=== PATIENT | female | born 1950 | race African-American/Black ===

== ENCOUNTER 2018-03-14 16:59 | Inpatient (IN) ==
[2018-03-14] MEDS ORDERED: ONDANSETRON 4 MG/2 ML VIAL IV STA (17:14)
[2018-03-14] MEDS ORDERED: NITROGLYCERIN 2% OINT 1 INCH/GM PACK TOP STA (17:14)
[2018-03-14] MEDS ORDERED: METOPROLOL TARTRATE 5 MG/5 ML VIAL IV STA (17:14)
[2018-03-14] MEDS ORDERED: MORPHINE 4 MG/1 ML VIAL IV STA (17:14)
[2018-03-14] MEDS ORDERED: ENOXAPARIN 60 MG/0.6 ML SYRINGE SUBCUT STA (17:21)
[2018-03-14 17:26] LABS: Basophils # 0.1 10*3/uL (0.0-0.2); Basophils % 0.4 % (0.0-0.8); Eosinophils % 0.1 % (0.00-10.9); Hematocrit 42.8 VOL% (35.7-47.0); Hemoglobin 13.8 GM/DL (12.0-16.0); Immature Granulocytes % 0.4 %; Immature Granulocytes Absolute 0.06 #; Lymphocytes # 3.1 10*3/uL (1.4-4.0); Lymphocytes % 20.3 % (21.3-54.2); Mean Corpuscular HGB Conc 32.2 GM/DL (32-36); Mean Corpuscular Hemoglobin 29 PG (27-34); Mean Corpuscular Volume 89.7 FL (87-102); Mean Platelet Volume 10.6 FL (9.6-12.0); Monocytes # 1.1 10*3/uL (0.11-0.8); Monocytes % 7.1 % (1.7-12.7); Neutrophils % 71.7 % (38.7-73.9); Platelet Count 323 T/CUMM (130-400); Red Blood Count 4.77 MC/CUMM (3.8-5.5); Red Cell Distribution Width 13.2 % (9.3-17.3); White Blood Count 15.4 T/CUMM (4-12)
[2018-03-14] MEDS ORDERED: NITROGLYCERIN DRIP 50 MG/250 ML BOTTLE IV ONE (17:33)
[2018-03-14] MEDS: NITROGLYCERIN DRIP 50 MG/250 ML BOTTLE IV PRN (17:40)
[2018-03-14 17:43] LABS: PT Patient Result 10.6 SECS; Partial Thromboplastin Time 25.9 SECS (0-40)
[2018-03-14] MEDS ORDERED: ACETAMINOPHEN 325 MG TABLET PO PRN (17:44)
[2018-03-14] MEDS ORDERED: MAGNESIUM SULF RIDER 2 GM in PREMIX 1 EACH IV PRN (17:44)
[2018-03-14] MEDS ORDERED: BISACODYL 5 MG TABLET PO PRN (17:44)
[2018-03-14] MEDS ORDERED: diphenhydrAMINE CAP 25 MG CAPSULE PO PRN (17:44)
[2018-03-14] MEDS ORDERED: ONDANSETRON 4 MG/2 ML VIAL IV PRN (17:44)
[2018-03-14] MEDS ORDERED: guaiFENesin/DM ER 600-30 MG TABLET PO PRN (17:44)
[2018-03-14] MEDS ORDERED: MAGNESIUM SULF RIDER 4 GM in PREMIX 1 EACH IV PRN (17:44)
[2018-03-14 17:48] LABS: Albumin 3.3 G/DL (3.4-5.0); Bilirubin,Total 0.6 MG/DL (0.2-1.0); CKMB % 11.6 %; Calcium 8.9 MG/DL (8.5-10.1); Osmolality,Calculated 274.8 MOS/KG (273-304); Potassium 3.5 MMOL/L (3.5-5.1); Total Protein 8.6 G/DL (6.4-8.3)
[2018-03-14 18:01] LABS: Troponin I Only 21.7 NG/ML (0.00-0.045)
[2018-03-14] MEDS ORDERED: DEXTROSE 50% 25 GM/50 ML VIAL IV PRN (18:01)
[2018-03-14] MEDS ORDERED: GLUCAGON 1 MG VIAL IM PRN (18:01)
[2018-03-14] MEDS ORDERED: ALBUTEROL 1.25 MG/3 ML NEB RESP TX PRN (18:05)
[2018-03-14] MEDS ORDERED: TICAGRELOR 90 MG TABLET PO ONE (18:10)
[2018-03-14] MEDS ORDERED: FUROSEMIDE 20 MG/2 ML VIAL IV STA (18:12)
[2018-03-14 18:16] LABS: Apearance,Urine CLEAR (Clear); Bacteria,Urine Occasional /HPF (Few); Bilirubin,Urine Negative (Negative); Blood, Urine Negative (Negative); Glucose,Urine (UA) Negative (Negative); Ketones,Urine Negative (Negative); Mucus,Urine Occasional /LPF (Occasional); Nitrite,Urine Negative (Negative); Protein,Urine 100 MG/DL; RBC,Urine 1 /HPF (0-4); Squamous Epithelial Cell,Urine Occasional /HPF (0-10); Urine Color Yellow (Yellow); Urine Specific Gravity 1.013 (1.001-1.035); Urine Urobilinogen < 2.0 EU/DL (0.2-1.0); WBC,Urine 2 /HPF (0-6)
[2018-03-14 18:28] LABS: Barbiturates Screen,Urine Negative (Negative); Benzodiazepines Screen,Urine Negative (Negative); Cannabinoid Screen,Urine Negative (Negative); Opiate Screen,Urine Positive (Negative); Phencyclidine Screen,Urine Negative (Negative)
[2018-03-14 20:05] LABS: CKMB % 11.1 %
[2018-03-14] MEDS: LOSARTAN 25 MG TABLET PO SCH (20:27)
[2018-03-14] MEDS: ROSUVASTATIN 20 MG TABLET PO SCH (20:27)
[2018-03-14] MEDS: POTASSIUM CHLORIDE 20 MEQ TABLET PO PRN (20:28)
[2018-03-14] MEDS: METOPROLOL TARTRATE 25 MG TABLET PO SCH (20:28)
[2018-03-14] MEDS: MORPHINE 4 MG/1 ML VIAL IV PRN (20:33)
[2018-03-14 20:38] LABS: Troponin I Only 32.1 NG/ML (0.00-0.045)
[2018-03-14] MEDS: INSULIN LISPRO 100 UNIT/ML SUBCUT SCH (21:14)
[2018-03-15] LABS: Troponin I Only 39.9 NG/ML (0.00-0.045)
[2018-03-15 06:03] LABS: Basophils % 0.3 % (0.0-0.8); Eosinophils % 0.1 % (0.00-10.9); Hematocrit 38.2 VOL% (35.7-47.0); Hemoglobin 12.7 GM/DL (12.0-16.0); Immature Granulocytes % 0.4 %; Immature Granulocytes Absolute 0.05 #; Lymphocytes # 2.4 10*3/uL (1.4-4.0); Lymphocytes % 17.6 % (21.3-54.2); Mean Corpuscular HGB Conc 33.2 GM/DL (32-36); Mean Corpuscular Hemoglobin 29 PG (27-34); Mean Corpuscular Volume 87.2 FL (87-102); Mean Platelet Volume 10.4 FL (9.6-12.0); Monocytes # 1.3 10*3/uL (0.11-0.8); Monocytes % 9.6 % (1.7-12.7); Neutrophils # 9.9 10*3/uL (1.4-7.4); Platelet Count 337 T/CUMM (130-400); Red Blood Count 4.38 MC/CUMM (3.8-5.5); Red Cell Distribution Width 13.2 % (9.3-17.3); White Blood Count 13.7 T/CUMM (4-12)
[2018-03-15] MEDS: ENOXAPARIN 60 MG/0.6 ML SYRINGE SUBCUT SCH ×2 (06:27→17:17)
[2018-03-15] MEDS: MORPHINE 4 MG/1 ML VIAL IV PRN ×3 (06:29→20:05)
[2018-03-15 06:38] LABS: Calcium 8.7 MG/DL (8.5-10.1); Osmolality,Calculated 281.3 MOS/KG (273-304); Potassium 3.5 MMOL/L (3.5-5.1); Risk Ratio 3.54; Thyroid Stimulating Hormone 0.359 uIU/ml (0.358-3.74); VLDL CHOLESTEROL 26.6 MG/DL
[2018-03-15] MEDS: INSULIN LISPRO 100 UNIT/ML SUBCUT SCH ×4 (07:32→20:49)
[2018-03-15] MEDS: FUROSEMIDE 20 MG/2 ML VIAL IV SCH ×2 (08:08→16:50)
[2018-03-15] MEDS: ASPIRIN EC 81 MG TABLET PO SCH (08:09)
[2018-03-15] MEDS: PANTOPRAZOLE 40 MG TABLET PO SCH (08:09)
[2018-03-15] MEDS: LOSARTAN 25 MG TABLET PO SCH ×2 (08:09→20:05)
[2018-03-15] MEDS: METOPROLOL TARTRATE 25 MG TABLET PO SCH ×2 (08:09→20:05)
[2018-03-15] MEDS ORDERED: TICAGRELOR 90 MG TABLET PO SCH (09:00)
[2018-03-15] MEDS ORDERED: ENOXAPARIN 40 MG/0.4 ML SYRINGE SUBCUT SCH (09:00)
[2018-03-15] MEDS ORDERED: ASPIRIN 325 MG TABLET PO ONE (09:15)
[2018-03-15] MEDS ORDERED: DIAZEPAM 5 MG TABLET PO ONE (09:15)
[2018-03-15] MEDS ORDERED: diphenhydrAMINE CAP 25 MG CAPSULE PO ONE (09:15)
[2018-03-15] MEDS ORDERED: POTASSIUM CHLORIDE RIDER 10 MEQ in PREMIX 1 EACH IV PRN (09:15)
[2018-03-15] MEDS ORDERED: MAGNESIUM SULF RIDER 2 GM in PREMIX 1 EACH IV PRN (09:15)
[2018-03-15] MEDS ORDERED: SODIUM CHLORIDE 0.9% 1,000 ML IV SCH (09:30)
[2018-03-15] MEDS ORDERED: MIDAZOLAM 2 MG/2 ML VIAL ONE (09:38)
[2018-03-15] MEDS ORDERED: HEPARIN 5,000 UNIT/1 ML VIAL ONE (09:38)
[2018-03-15] MEDS ORDERED: fentaNYL 100 MCG/2 ML VIAL ONE (09:38)
[2018-03-15] MEDS ORDERED: NITROGLYCERIN DRIP 50 MG/250 ML BOTTLE IV ONE (11:29)
[2018-03-15] MEDS: NITROGLYCERIN DRIP 50 MG/250 ML BOTTLE IV PRN ×2 (12:10→21:45)
[2018-03-15] MEDS: ROSUVASTATIN 20 MG TABLET PO SCH (20:05)
[2018-03-15] MEDS: ZALEPLON 5 MG CAPSULE PO PRN (20:05)
[2018-03-15] MEDS: NICOTINE 7 MG/24 HR PATCH TRANSDERM PRN (20:45)
[2018-03-16] MEDS: MORPHINE 4 MG/1 ML VIAL IV PRN ×4 (04:07→13:53)
[2018-03-16 05:32] LABS: Basophils # 0.1 10*3/uL (0.0-0.2); Basophils % 0.4 % (0.0-0.8); Eosinophils % 0.3 % (0.00-10.9); Hematocrit 33.1 VOL% (35.7-47.0); Immature Granulocytes % 0.4 %; Immature Granulocytes Absolute 0.05 #; Lymphocytes # 3.8 10*3/uL (1.4-4.0); Lymphocytes % 29.9 % (21.3-54.2); Mean Corpuscular HGB Conc 33.2 GM/DL (32-36); Mean Corpuscular Hemoglobin 29 PG (27-34); Mean Corpuscular Volume 88.3 FL (87-102); Mean Platelet Volume 10.4 FL (9.6-12.0); Monocytes # 1.4 10*3/uL (0.11-0.8); Monocytes % 11.4 % (1.7-12.7); Neutrophils # 7.2 10*3/uL (1.4-7.4); Neutrophils % 57.6 % (38.7-73.9); Platelet Count 255 T/CUMM (130-400); Red Blood Count 3.75 MC/CUMM (3.8-5.5); Red Cell Distribution Width 13.3 % (9.3-17.3); White Blood Count 12.6 T/CUMM (4-12)
[2018-03-16 06:02] LABS: Calcium 8.4 MG/DL (8.5-10.1); Osmolality,Calculated 279.4 MOS/KG (273-304); Potassium 3.4 MMOL/L (3.5-5.1)
[2018-03-16] MEDS: ENOXAPARIN 60 MG/0.6 ML SYRINGE SUBCUT SCH ×2 (06:55→18:16)
[2018-03-16] MEDS: POTASSIUM CHLORIDE 20 MEQ TABLET PO PRN ×3 (07:00→13:54)
[2018-03-16] MEDS: INSULIN LISPRO 100 UNIT/ML SUBCUT SCH ×4 (07:30→21:54)
[2018-03-16] MEDS: FUROSEMIDE 20 MG/2 ML VIAL IV SCH ×2 (08:46→17:15)
[2018-03-16] MEDS: ASPIRIN EC 81 MG TABLET PO SCH (08:47)
[2018-03-16] MEDS: METOPROLOL TARTRATE 25 MG TABLET PO SCH ×2 (08:47→20:46)
[2018-03-16] MEDS: LOSARTAN 25 MG TABLET PO SCH (08:47)
[2018-03-16] MEDS: PANTOPRAZOLE 40 MG TABLET PO SCH (08:47)
[2018-03-16] MEDS: NITROGLYCERIN DRIP 50 MG/250 ML BOTTLE IV PRN (10:02)
[2018-03-16] MEDS: LOSARTAN 50 MG TABLET PO SCH ×2 (12:06→20:46)
[2018-03-16] MEDS: CARVEDILOL 25 MG TABLET PO SCH ×5 (15:38→23:58)
[2018-03-16] MEDS: traMADol 50 MG TABLET PO PRN (15:40)
[2018-03-16] MEDS: SPIRONOLACTONE 25 MG TABLET PO SCH ×2 (15:42→20:47)
[2018-03-16] MEDS: GABAPENTIN 100 MG CAPSULE PO SCH ×2 (15:43→20:46)
[2018-03-16] MEDS: ENOXAPARIN 40 MG/0.4 ML SYRINGE SUBCUT SCH (18:13)
[2018-03-16] MEDS: ROSUVASTATIN 20 MG TABLET PO SCH (20:45)
[2018-03-17 05:14] LABS: Basophils # 0.1 10*3/uL (0.0-0.2); Basophils % 0.5 % (0.0-0.8); Eosinophils # 0.1 10*3/uL (0.0-0.87); Eosinophils % 1.2 % (0.00-10.9); Hematocrit 34.1 VOL% (35.7-47.0); Hemoglobin 11.1 GM/DL (12.0-16.0); Immature Granulocytes % 0.4 %; Immature Granulocytes Absolute 0.04 #; Lymphocytes # 3.7 10*3/uL (1.4-4.0); Lymphocytes % 33.6 % (21.3-54.2); Mean Corpuscular HGB Conc 32.6 GM/DL (32-36); Mean Corpuscular Hemoglobin 29 PG (27-34); Mean Platelet Volume 10.6 FL (9.6-12.0); Monocytes # 1.3 10*3/uL (0.11-0.8); Neutrophils # 5.7 10*3/uL (1.4-7.4); Neutrophils % 52.3 % (38.7-73.9); Platelet Count 254 T/CUMM (130-400); Red Blood Count 3.83 MC/CUMM (3.8-5.5); Red Cell Distribution Width 13.4 % (9.3-17.3); White Blood Count 10.9 T/CUMM (4-12)
[2018-03-17] MEDS: ENOXAPARIN 40 MG/0.4 ML SYRINGE SUBCUT SCH ×2 (05:15→17:32)
[2018-03-17] MEDS: MORPHINE 4 MG/1 ML VIAL IV PRN ×2 (05:15→21:01)
[2018-03-17] MEDS: CARVEDILOL 25 MG TABLET PO SCH ×3 (05:15→21:00)
[2018-03-17 05:50] LABS: Calcium 8.7 MG/DL (8.5-10.1); Osmolality,Calculated 280.3 MOS/KG (273-304)
[2018-03-17] MEDS: INSULIN LISPRO 100 UNIT/ML SUBCUT SCH ×2 (08:22→14:58)
[2018-03-17] MEDS: PANTOPRAZOLE 40 MG TABLET PO SCH (08:36)
[2018-03-17] MEDS: LOSARTAN 50 MG TABLET PO SCH ×2 (08:36→21:00)
[2018-03-17] MEDS: SPIRONOLACTONE 25 MG TABLET PO SCH ×2 (08:36→21:00)
[2018-03-17] MEDS: ASPIRIN EC 81 MG TABLET PO SCH (08:37)
[2018-03-17] MEDS: GABAPENTIN 100 MG CAPSULE PO SCH ×3 (08:37→21:01)
[2018-03-17] MEDS: METOPROLOL TARTRATE 25 MG TABLET PO SCH (08:38)
[2018-03-17] MEDS: FUROSEMIDE 20 MG/2 ML VIAL IV SCH (08:39)
[2018-03-17] MEDS: NICOTINE 7 MG/24 HR PATCH TRANSDERM PRN (08:59)
[2018-03-17] MEDS ORDERED: CARVEDILOL 25 MG TABLET PO ONE (12:00)
[2018-03-17] MEDS: traMADol 50 MG TABLET PO PRN (14:52)
[2018-03-17] MEDS: amLODIPine 5 MG TABLET PO SCH ×2 (14:53→21:08)
[2018-03-17] MEDS: ZALEPLON 5 MG CAPSULE PO PRN (21:00)
[2018-03-17] MEDS: ROSUVASTATIN 20 MG TABLET PO SCH (21:00)
[2018-03-18 05:10] LABS: Basophils % 0.4 % (0.0-0.8); Eosinophils # 0.2 10*3/uL (0.0-0.87); Eosinophils % 1.9 % (0.00-10.9); Hematocrit 34.4 VOL% (35.7-47.0); Hemoglobin 11.2 GM/DL (12.0-16.0); Immature Granulocytes % 0.3 %; Immature Granulocytes Absolute 0.03 #; Lymphocytes # 3.4 10*3/uL (1.4-4.0); Lymphocytes % 33.5 % (21.3-54.2); Mean Corpuscular HGB Conc 32.6 GM/DL (32-36); Mean Corpuscular Hemoglobin 29 PG (27-34); Mean Corpuscular Volume 89.8 FL (87-102); Mean Platelet Volume 10.8 FL (9.6-12.0); Monocytes # 0.9 10*3/uL (0.11-0.8); Monocytes % 8.4 % (1.7-12.7); Neutrophils # 5.7 10*3/uL (1.4-7.4); Neutrophils % 55.5 % (38.7-73.9); Platelet Count 267 T/CUMM (130-400); Red Blood Count 3.83 MC/CUMM (3.8-5.5); Red Cell Distribution Width 13.3 % (9.3-17.3); White Blood Count 10.2 T/CUMM (4-12)
[2018-03-18 05:51] LABS: Calcium 8.7 MG/DL (8.5-10.1); Osmolality,Calculated 284.1 MOS/KG (273-304); Potassium 4.5 MMOL/L (3.5-5.1)
[2018-03-18] MEDS: ENOXAPARIN 40 MG/0.4 ML SYRINGE SUBCUT SCH ×2 (06:10→16:40)
[2018-03-18] MEDS: GABAPENTIN 100 MG CAPSULE PO SCH ×3 (08:38→20:52)
[2018-03-18] MEDS: SPIRONOLACTONE 25 MG TABLET PO SCH ×2 (08:38→20:52)
[2018-03-18] MEDS: amLODIPine 5 MG TABLET PO SCH ×2 (08:38→20:52)
[2018-03-18] MEDS: PANTOPRAZOLE 40 MG TABLET PO SCH (08:38)
[2018-03-18] MEDS: FUROSEMIDE 40 MG TABLET PO SCH (08:38)
[2018-03-18] MEDS: ASPIRIN EC 81 MG TABLET PO SCH (08:38)
[2018-03-18] MEDS: LOSARTAN 50 MG TABLET PO SCH ×2 (08:39→20:52)
[2018-03-18] MEDS: CARVEDILOL 25 MG TABLET PO SCH ×2 (08:39→20:52)
[2018-03-18] MEDS: traMADol 50 MG TABLET PO PRN (08:39)
[2018-03-18] MEDS ORDERED: traMADol 50 MG TABLET PO PRN (08:45)
[2018-03-18] MEDS: NICOTINE 7 MG/24 HR PATCH TRANSDERM PRN (17:00)
[2018-03-18] MEDS ORDERED: MAGNESIUM HYDROXIDE SUSP 30 ML UDCUP PO PRN (17:02)
[2018-03-18] MEDS: ROSUVASTATIN 20 MG TABLET PO SCH (20:52)
[2018-03-19] MEDS: GABAPENTIN 100 MG CAPSULE PO SCH (08:16)
[2018-03-19] MEDS: CARVEDILOL 25 MG TABLET PO SCH (08:16)
[2018-03-19] MEDS: PANTOPRAZOLE 40 MG TABLET PO SCH (08:16)
[2018-03-19] MEDS: FUROSEMIDE 40 MG TABLET PO SCH (08:17)
[2018-03-19] MEDS: ASPIRIN EC 81 MG TABLET PO SCH (08:17)
[2018-03-19] MEDS: SPIRONOLACTONE 25 MG TABLET PO SCH (08:17)
[2018-03-19] MEDS: LOSARTAN 50 MG TABLET PO SCH (08:17)
[2018-03-19] MEDS: amLODIPine 5 MG TABLET PO SCH (08:17)
[2018-03-19] MEDS ORDERED: NITROGLYCERIN SL 0.4 MG TABLET SL ONE (10:52)
[2018-03-19] MEDS ORDERED: MORPHINE 4 MG/1 ML VIAL IV ONE (11:01)
[2018-03-19] MEDS ORDERED: MORPHINE 10 MG/1 ML VIAL ONE (11:04)
[2018-03-19] MEDS: CHLORHEXIDINE 4% SOLN 118 ML BOTTLE TOP SCH (11:10)
[2018-03-19] MEDS ORDERED: ceFAZolin 1,000 MG in SYRINGE 1 EACH IV ONE (11:14)
[2018-03-19] MEDS ORDERED: NITROGLYCERIN DRIP 50 MG/250 ML BOTTLE IV PRN (11:18)
[2018-03-19] MEDS ORDERED: MORPHINE 4 MG/1 ML VIAL IV PRN (11:19)
[2018-03-19] MEDS ORDERED: MIDAZOLAM 10 MG/2 ML VIAL ONE ×2 (11:20→21:41)
[2018-03-19] MEDS ORDERED: SUFentanil 250 MCG/5 ML AMP ONE (11:20)
[2018-03-19] MEDS ORDERED: CHLORHEXIDINE 0.12% ORAL RINSE 60 ML BOTTLE SWISH/SPIT SCH (11:30)
[2018-03-19] MEDS ORDERED: SODIUM CHLORIDE 0.9% 1,000 ML IV SCH (11:30)
[2018-03-19] MEDS ORDERED: PAPAVERINE 60 MG/2 ML VIAL ONE (11:36)
[2018-03-19] MEDS ORDERED: VANCOMYCIN 1,000 MG VIAL ONE (11:37)
[2018-03-19] MEDS ORDERED: TISSUE ADHESIVE 1 EACH APPLICATOR TOP ONE (11:37)
[2018-03-19] MEDS ORDERED: HEPARIN/NACL 0.9% 2 UNITS/ML 500 ML IV ONE (11:38)
[2018-03-19 11:46] LABS: Basophils % 0.4 % (0.0-0.8); Eosinophils # 0.2 10*3/uL (0.0-0.87); Eosinophils % 1.4 % (0.00-10.9); Hematocrit 36.9 VOL% (35.7-47.0); Hemoglobin 12.1 GM/DL (12.0-16.0); Immature Granulocytes % 0.3 %; Immature Granulocytes Absolute 0.03 #; Lymphocytes # 3.4 10*3/uL (1.4-4.0); Lymphocytes % 30.4 % (21.3-54.2); Mean Corpuscular HGB Conc 32.8 GM/DL (32-36); Mean Corpuscular Hemoglobin 29 PG (27-34); Mean Corpuscular Volume 89.3 FL (87-102); Mean Platelet Volume 10.5 FL (9.6-12.0); Monocytes # 1.1 10*3/uL (0.11-0.8); Monocytes % 9.5 % (1.7-12.7); Neutrophils # 6.5 10*3/uL (1.4-7.4); Platelet Count 355 T/CUMM (130-400); Red Blood Count 4.13 MC/CUMM (3.8-5.5); Red Cell Distribution Width 13.1 % (9.3-17.3); White Blood Count 11.1 T/CUMM (4-12)
[2018-03-19] MEDS ORDERED: METOCLOPRAMIDE 10 MG/2 ML VIAL ONE (11:47)
[2018-03-19] MEDS ORDERED: MINERAL OIL/PETROLATUM OPH OINT 3.5 GM TUBE ONE ×2 (11:54→15:58)
[2018-03-19] MEDS ORDERED: SUCCINYLCHOLINE 200 MG/10 ML VIAL ONE ×2 (11:54→15:59)
[2018-03-19] MEDS ORDERED: METOCLOPRAMIDE 10 MG/2 ML VIAL IV ONE ×2 (11:59→12:01)
[2018-03-19] MEDS ORDERED: CEFUROXIME 1,500 MG VIAL ONE (12:02)
[2018-03-19 12:28] LABS: Albumin 3.2 G/DL (3.4-5.0); Bilirubin,Total 0.7 MG/DL (0.2-1.0); Calcium 9.6 MG/DL (8.5-10.1); Osmolality,Calculated 276.7 MOS/KG (273-304); Potassium 3.8 MMOL/L (3.5-5.1); Total Protein 8.4 G/DL (6.4-8.3)
[2018-03-19 13:05] LABS: ABG Base Excess 0.3 MMOL/L (-2.5-2.5); ABG HCO3 24.7 MMOL/L (20-26); ABG Oxygen Saturation 99.7 % (95-100); ABG PO2 419.9 MM HG (80-95); ABG TCO2 25.9 MMOL/L (23-27); Glucose Heart Surgery 102 MG/DL (74-106); Hemoglobin Heart Surgery 10.8 G/DL (12.0-16.0); Ionized Calcium Arterial 1.13 MMOL/L (1.21-1.46); PO2 Patient Temp Arterial 419.9 MM HG; Patient Temperature 37 CELCIUS; Potassium Heart/CVR 4.2 MMOL/L (3.5-5.1); Sodium Heart/CVR 137 MMOL/L (135-145)
[2018-03-19 14:29] LABS: Glucose Heart Surgery 343 MG/DL (74-106); PH Patient Temp Venous 7.423; PO2 Patient Temp Venous 39.7 MM HG; Patient Temperature 37 CELCIUS; Potassium Heart/CVR 4.6 MMOL/L (3.5-5.1); Sodium Heart/CVR 125 MMOL/L (135-145); VBG Base Excess -0.2 MEQ/L (0-4); VBG HCO3 24.1 MEQ/L (24-28); VBG Oxygen Saturation 74.9 %; VBG PH 7.423; VBG PO2 39.7 MMHG (17-40)
[2018-03-19 14:31] LABS: Hematocrit Heart Surgery 15.7 PERCENT (37-47); Hemoglobin Heart Surgery < 5.0 G/DL (12.0-16.0)
[2018-03-19 14:57] LABS: Hematocrit Heart Surgery 23.5 PERCENT (37-47); Hemoglobin Heart Surgery 7.5 G/DL (12.0-16.0); PCO2 Patient Temp Venous 37.4 MM HG; PH Patient Temp Venous 7.407; PO2 Patient Temp Venous 33.3 MM HG; VBG Base Excess -0.9 MEQ/L (0-4); VBG HCO3 23.3 MEQ/L (24-28); VBG Oxygen Saturation 68.4 %; VBG PCO2 37.4 MMHG (41-51); VBG PH 7.407; VBG PO2 33.3 MMHG (17-40)
[2018-03-19 15:32] LABS: Hematocrit Heart Surgery 26.2 PERCENT (37-47); Hemoglobin Heart Surgery 8.4 G/DL (12.0-16.0); PCO2 Patient Temp Venous 36.3 MM HG; PH Patient Temp Venous 7.425; PO2 Patient Temp Venous 40.4 MM HG; Potassium Heart/CVR 4.3 MMOL/L (3.5-5.1); VBG Base Excess -0.3 MEQ/L (0-4); VBG HCO3 23.9 MEQ/L (24-28); VBG Oxygen Saturation 77.9 %; VBG PCO2 36.3 MMHG (41-51); VBG PH 7.425; VBG PO2 40.4 MMHG (17-40)
[2018-03-19] MEDS ORDERED: THROMBIN TOPICAL (RECOMBINANT) 5,000 UNIT VIAL TOP ONE (15:45)
[2018-03-19] MEDS ORDERED: PROTAMINE SULFATE 250 MG/25 ML VIAL IV ONE (15:50)
[2018-03-19] MEDS ORDERED: DEXTROSE 5% KCL 20 MEQ 20 MEQ/1,000 ML BAG IV ONE (15:50)
[2018-03-19] MEDS ORDERED: SODIUM BICARBONATE 50 MEQ/50 ML SYRINGE IV ONE (15:50)
[2018-03-19] MEDS ORDERED: ALBUMIN 25% 25 GM/100 ML VIAL IV ONE (15:50)
[2018-03-19] MEDS ORDERED: MAGNESIUM SULFATE 1 GM/2 ML VIAL ONE (15:50)
[2018-03-19] MEDS ORDERED: methylPREDNISolone SOD SUC 1,000 MG/8 ML VIAL ONE (15:51)
[2018-03-19] MEDS ORDERED: ALBUMIN 5% 12.5 GM/250 ML VIAL IV ONE (15:51)
[2018-03-19] MEDS ORDERED: FUROSEMIDE 20 MG/2 ML VIAL ONE (15:51)
[2018-03-19] MEDS ORDERED: HEPARIN 10,000 UNIT/10 ML VIAL ONE (15:51)
[2018-03-19] MEDS ORDERED: MANNITOL 12.5 GM/50 ML VIAL IV ONE (15:51)
[2018-03-19 15:56] LABS: ABG Base Excess -0.7 MMOL/L (-2.5-2.5); ABG HCO3 21.8 MMOL/L (20-26); ABG Oxygen Saturation 99.2 % (95-100); ABG PCO2 28.1 MM HG (35-48); ABG PH 7.507 (7.35-7.45); ABG PO2 431.2 MM HG (80-95); ABG TCO2 22.6 MMOL/L (23-27); Glucose Heart Surgery 214 MG/DL (74-106); Ionized Calcium Arterial 1.41 MMOL/L (1.21-1.46); Potassium Heart/CVR 3.8 MMOL/L (3.5-5.1); Sodium Heart/CVR 130 MMOL/L (135-145)
[2018-03-19] MEDS ORDERED: SODIUM CHLORIDE 0.9% 2,000 ML IV ONE (15:57)
[2018-03-19] MEDS ORDERED: SODIUM CHLORIDE 0.9% 250 ML IV ONE (15:57)
[2018-03-19] MEDS ORDERED: LACTATED RINGERS 2,000 ML IV ONE (15:57)
[2018-03-19] MEDS ORDERED: TRANEXAMIC ACID 1,000 MG/10 ML VIAL ONE (15:57)
[2018-03-19] MEDS ORDERED: SEVOFLURANE 1 UNIT/15 MINUTE INH ONE ×2 (15:57→17:11)
[2018-03-19] MEDS ORDERED: CALCIUM CHLORIDE 1,000 MG/10 ML VIAL IV ONE (15:58)
[2018-03-19] MEDS ORDERED: LIDOCAINE 1% 5 ML VIAL ONE (15:58)
[2018-03-19] MEDS ORDERED: VECURONIUM 10 MG VIAL IV ONE (15:59)
[2018-03-19] MEDS ORDERED: ETOMIDATE 40 MG/20 ML VIAL IV ONE (15:59)
[2018-03-19 16:02] LABS: Apearance,Urine CLEAR (Clear); Bilirubin,Urine Negative (Negative); Blood, Urine Negative (Negative); Glucose,Urine (UA) Negative (Negative); Hyaline Casts,Urine 5 /LPF (0-3); Ketones,Urine Negative (Negative); Nitrite,Urine Negative (Negative); Protein,Urine Negative; RBC,Urine <1 /HPF (0-4); Squamous Epithelial Cell,Urine Occasional /HPF (0-10); Urine Color Yellow (Yellow); Urine Specific Gravity 1.008 (1.001-1.035); WBC,Urine 1 /HPF (0-6)
[2018-03-19] MEDS ORDERED: PHENYLEPHRINE DRIP 40 MG/250 ML PREMIX IV ONE (16:28)
[2018-03-19] MEDS: NITROGLYCERIN DRIP 50 MG/250 ML BOTTLE IV PRN (16:55)
[2018-03-19] MEDS: SODIUM CHLORIDE 0.45% 1,000 ML IV SCH ×2 (16:55→17:00)
[2018-03-19] MEDS ORDERED: NITROPRUSSIDE 50 MG/2 ML VIAL ONE (17:18)
[2018-03-19] MEDS ORDERED: LABETALOL 20 MG/4 ML SYRINGE IV ONE ×2 (17:45→19:21)
[2018-03-19] MEDS ORDERED: NITROPRUSSIDE 100 MG in DEXTROSE 5% 250 ML IV PRN (17:45)
[2018-03-19] MEDS ORDERED: DEXTROSE 50% 25 GM/50 ML VIAL IV PRN ×2 (17:46)
[2018-03-19] MEDS ORDERED: CALCIUM CHLORIDE 1,000 MG/10 ML SYRINGE IV PRN (17:46)
[2018-03-19] MEDS ORDERED: INSULIN REGULAR 100 UNIT/ML IV PRN (17:46)
[2018-03-19] MEDS ORDERED: CHLORHEXIDINE 4% SOLN 118 ML BOTTLE TOP PRN (17:46)
[2018-03-19] MEDS ORDERED: MAGNESIUM SULF RIDER 4 GM in PREMIX 1 EACH IV PRN (17:46)
[2018-03-19] MEDS ORDERED: ACETAMINOPHEN 650 MG SUPP RECTAL PRN (17:46)
[2018-03-19] MEDS ORDERED: ONDANSETRON 4 MG/2 ML VIAL IV PRN (17:46)
[2018-03-19] MEDS ORDERED: MAGNESIUM SULF RIDER 2 GM in PREMIX 1 EACH IV PRN (17:46)
[2018-03-19] MEDS ORDERED: MIDAZOLAM 2 MG/2 ML VIAL ONE (17:47)
[2018-03-19] MEDS ORDERED: MIDAZOLAM 2 MG/2 ML VIAL IV ONE (17:50)
[2018-03-19 18:02] LABS: ABG Base Excess -0.2 MMOL/L (-2.5-2.5); ABG HCO3 24.3 MMOL/L (20-26); ABG Oxygen Saturation 99.9 % (95-100); ABG PCO2 35.9 MM HG (35-48); ABG PH 7.429 (7.35-7.45); ABG TCO2 21.5 MMOL/L (23-27); Glucose Heart Surgery 139 MG/DL (74-106); Hematocrit Heart Surgery 31.1 PERCENT (37-47); Hemoglobin Heart Surgery 10.1 G/DL (12.0-16.0); Potassium Heart/CVR 3.2 MMOL/L (3.5-5.1)
[2018-03-19 18:03] LABS: Basophils % 0.3 % (0.0-0.8); Eosinophils % 0.2 % (0.00-10.9); Hematocrit 29.5 VOL% (35.7-47.0); Hemoglobin 9.9 GM/DL (12.0-16.0); Immature Granulocytes % 0.6 %; Immature Granulocytes Absolute 0.08 #; Lymphocytes # 1.5 10*3/uL (1.4-4.0); Lymphocytes % 11.7 % (21.3-54.2); Mean Corpuscular HGB Conc 33.6 GM/DL (32-36); Mean Corpuscular Hemoglobin 30 PG (27-34); Mean Corpuscular Volume 87.8 FL (87-102); Mean Platelet Volume 10.6 FL (9.6-12.0); Monocytes % 7.7 % (1.7-12.7); Neutrophils # 10.4 10*3/uL (1.4-7.4); Neutrophils % 79.5 % (38.7-73.9); Platelet Count 189 T/CUMM (130-400); Red Blood Count 3.36 MC/CUMM (3.8-5.5); Red Cell Distribution Width 13.7 % (9.3-17.3); White Blood Count 13.1 T/CUMM (4-12)
[2018-03-19 18:14] LABS: INR 1.1; PT Patient Result 11.9 SECS; Partial Thromboplastin Time 39.7 SECS (0-40)
[2018-03-19 18:21] LABS: Lactic Acid 1.3 MMOL/L (0.4-2.0)
[2018-03-19] MEDS: POTASSIUM CHLORIDE RIDER 20 MEQ in PREMIX 1 EACH IV PRN ×2 (18:25→19:54)
[2018-03-19 18:28] LABS: Calcium 8.6 MG/DL (8.5-10.1); Osmolality,Calculated 281.4 MOS/KG (273-304); Potassium 3.3 MMOL/L (3.5-5.1)
[2018-03-19] MEDS: MIDAZOLAM 2 MG/2 ML VIAL IV PRN ×2 (18:52→21:50)
[2018-03-19] MEDS: ALBUMIN 5% 12.5 GM in PREMIX 1 EACH IV PRN ×5 (18:55→22:05)
[2018-03-19] MEDS: SODIUM CHLORIDE 0.9% 250 ML IV PRN ×5 (19:00→21:19)
[2018-03-19 19:01] LABS: Band Neutrophils 3 % (0-10); Hypochromasia Slight; Lymphocytes 6 % (20-55); Microcytosis Slight; Platelet Estimate Normal; Segmented Neutrophils 87 % (50-85); Total Cells Counted 100
[2018-03-19] MEDS ORDERED: PROPOFOL 1,000 MG/100 ML BOTTLE IV ONE (19:05)
[2018-03-19] MEDS: PROPOFOL 1,000 MG/100 ML BOTTLE IV SCH (19:35)
[2018-03-19] MEDS ORDERED: DOBUTamine 500 MG/250 ML PREMIX IV ONE (21:30)
[2018-03-19] MEDS ORDERED: DOBUTamine 500 MG/250 ML PREMIX IV PRN (21:33)
[2018-03-19] MEDS ORDERED: EPINEPHrine 1 MG/10 ML SYRINGE ONE (21:35)
[2018-03-19] MEDS ORDERED: EPINEPHrine 1 MG/10 ML SYRINGE IV ONE (21:35)
[2018-03-19 21:46] LABS: ABG Base Excess -1.2 MMOL/L (-2.5-2.5); ABG HCO3 22.9 MMOL/L (20-26); ABG Oxygen Saturation 98.4 % (95-100); ABG PCO2 35.1 MM HG (35-48); ABG PH 7.432 (7.35-7.45); ABG PO2 166.2 MM HG (80-95); Glucose Heart Surgery 162 MG/DL (74-106); Hemoglobin Heart Surgery 7.2 G/DL (12.0-16.0); Potassium Heart/CVR 5.2 MMOL/L (3.5-5.1)
[2018-03-19] MEDS ORDERED: INSULIN REGULAR DRIP 100 ML IV PRN (22:26)
[2018-03-19] MEDS ORDERED: ASPIRIN 325 MG TABLET PO ONE (22:30)
[2018-03-19] MEDS ORDERED: CALCIUM CHLORIDE 1,000 MG in SODIUM CHLORIDE 0.9% 100 ML IV ONE (23:00)
[2018-03-20] MEDS: CHLORHEXIDINE 0.12% ORAL RINSE 60 ML BOTTLE SWISH/SPIT SCH ×3 (00:07→21:09)
[2018-03-20] MEDS ORDERED: CALCIUM CHLORIDE 1,000 MG in SODIUM CHLORIDE 0.9% 100 ML IV ONE ×2 (00:51→12:00)
[2018-03-20] MEDS ORDERED: SODIUM CHLORIDE 0.9% 1,000 ML IV PRN ×4 (01:05→10:32)
[2018-03-20] MEDS: CEFUROXIME INJ 1,500 MG in SYRINGE 1 EACH IV SCH ×2 (01:38→12:30)
[2018-03-20 01:58] LABS: ABG Base Excess -4.8 MMOL/L (-2.5-2.5); ABG HCO3 20.5 MMOL/L (20-26); ABG Oxygen Saturation 99.9 % (95-100); ABG PCO2 34.9 MM HG (35-48); ABG PH 7.364 (7.35-7.45); ABG TCO2 17.7 MMOL/L (23-27); Glucose Heart Surgery 142 MG/DL (74-106); Hematocrit Heart Surgery 35.8 PERCENT (37-47); Hemoglobin Heart Surgery 11.6 G/DL (12.0-16.0); Potassium Heart/CVR 3.9 MMOL/L (3.5-5.1)
[2018-03-20 02:04] LABS: Basophils % 0.1 % (0.0-0.8); Hematocrit 34.1 VOL% (35.7-47.0); Hemoglobin 11.5 GM/DL (12.0-16.0); Immature Granulocytes % 0.3 %; Immature Granulocytes Absolute 0.04 #; Lymphocytes # 1.7 10*3/uL (1.4-4.0); Mean Corpuscular HGB Conc 33.7 GM/DL (32-36); Mean Corpuscular Hemoglobin 28 PG (27-34); Mean Platelet Volume 10.9 FL (9.6-12.0); Monocytes # 0.7 10*3/uL (0.11-0.8); Monocytes % 5.1 % (1.7-12.7); Neutrophils # 10.8 10*3/uL (1.4-7.4); Neutrophils % 81.5 % (38.7-73.9); Platelet Count 99 T/CUMM (130-400); Red Blood Count 4.06 MC/CUMM (3.8-5.5); White Blood Count 13.2 T/CUMM (4-12)
[2018-03-20] MEDS: PROPOFOL 1,000 MG/100 ML BOTTLE IV SCH ×3 (02:06→21:48)
[2018-03-20 02:18] LABS: Calcium 9.6 MG/DL (8.5-10.1); Osmolality,Calculated 283.3 MOS/KG (273-304)
[2018-03-20] MEDS ORDERED: SODIUM CHLORIDE 0.9% 1,000 ML IV ONE (02:31)
[2018-03-20] MEDS ORDERED: EPINEPHrine 1 MG/ML VIAL ONE ×2 (03:56→03:59)
[2018-03-20] MEDS: ALBUMIN 5% 12.5 GM in PREMIX 1 EACH IV PRN ×3 (04:14→08:20)
[2018-03-20] MEDS ORDERED: TISSUE ADHESIVE 1 EACH APPLICATOR TOP ONE (04:56)
[2018-03-20] MEDS ORDERED: PAPAVERINE 60 MG/2 ML VIAL ONE (04:56)
[2018-03-20] MEDS ORDERED: VANCOMYCIN 1,000 MG VIAL ONE (04:56)
[2018-03-20] MEDS ORDERED: MIDAZOLAM 10 MG/2 ML VIAL ONE (06:40)
[2018-03-20] MEDS ORDERED: ROCURONIUM 100 MG/10 ML VIAL IV ONE (06:40)
[2018-03-20] MEDS: GABAPENTIN 100 MG CAPSULE PO SCH (07:25)
[2018-03-20] MEDS: CHLORHEXIDINE 4% SOLN 118 ML BOTTLE TOP SCH (07:25)
[2018-03-20] MEDS: ENOXAPARIN 40 MG/0.4 ML SYRINGE SUBCUT SCH (07:26)
[2018-03-20] MEDS ORDERED: PHENYLEPHRINE 10 MG/1 ML VIAL IV ONE (07:42)
[2018-03-20] MEDS ORDERED: ePHEDrine 50 MG/ML AMP ONE (07:42)
[2018-03-20] MEDS ORDERED: SEVOFLURANE 1 UNIT/15 MINUTE INH ONE (07:42)
[2018-03-20] MEDS ORDERED: SODIUM CHLORIDE 0.9% 250 ML IV ONE (07:43)
[2018-03-20] MEDS ORDERED: LACTATED RINGERS 1,000 ML IV ONE (07:43)
[2018-03-20] MEDS: SODIUM CHLORIDE 0.45% 1,000 ML IV SCH ×3 (08:00→21:49)
[2018-03-20 08:15] LABS: Basophils % 0.1 % (0.0-0.8); Hematocrit 26.7 VOL% (35.7-47.0); Immature Granulocytes % 0.4 %; Immature Granulocytes Absolute 0.06 #; Lymphocytes % 14.8 % (21.3-54.2); Mean Corpuscular HGB Conc 33.7 GM/DL (32-36); Mean Corpuscular Hemoglobin 28 PG (27-34); Mean Corpuscular Volume 84.2 FL (87-102); Mean Platelet Volume 11.4 FL (9.6-12.0); Monocytes # 0.7 10*3/uL (0.11-0.8); Monocytes % 4.8 % (1.7-12.7); Neutrophils # 10.9 10*3/uL (1.4-7.4); Neutrophils % 79.9 % (38.7-73.9); Platelet Count 75 T/CUMM (130-400); Red Blood Count 3.17 MC/CUMM (3.8-5.5); Red Cell Distribution Width 16.5 % (9.3-17.3); White Blood Count 13.6 T/CUMM (4-12)
[2018-03-20 08:16] LABS: ABG Base Excess -4.8 MMOL/L (-2.5-2.5); ABG HCO3 20.4 MMOL/L (20-26); ABG Oxygen Saturation 95.1 % (95-100); ABG PCO2 38.1 MM HG (35-48); ABG PH 7.339 (7.35-7.45); ABG PO2 76.6 MM HG (80-95); Glucose Heart Surgery 154 MG/DL (74-106); Hematocrit Heart Surgery 28.4 PERCENT (37-47); Hemoglobin Heart Surgery 9.2 G/DL (12.0-16.0); Potassium Heart/CVR 3.7 MMOL/L (3.5-5.1)
[2018-03-20 08:29] LABS: INR 1.2; PT Patient Result 12.5 SECS
[2018-03-20 08:29] LABS: VBG Base Excess -4.2 MEQ/L (0-4); VBG HCO3 20.2 MEQ/L (24-28); VBG Oxygen Saturation 48.8 %; VBG PH 7.313; VBG PO2 27.7 MMHG (17-40)
[2018-03-20 08:35] LABS: Lactic Acid 0.9 MMOL/L (0.4-2.0)
[2018-03-20 08:36] LABS: Partial Thromboplastin Time 47.2 SECS (0-40)
[2018-03-20] MEDS ORDERED: SODIUM BICARBONATE 50 MEQ/50 ML SYRINGE IV ONE ×2 (08:43→08:44)
[2018-03-20 08:45] LABS: Band Neutrophils 31 % (0-10); Lymphocytes 12 % (20-55); Platelet Estimate Decreased; Segmented Neutrophils 55 % (50-85); Total Cells Counted 100
[2018-03-20 08:46] LABS: Anisocytosis 1+
[2018-03-20 08:55] LABS: Calcium 7.9 MG/DL (8.5-10.1); Osmolality,Calculated 284.3 MOS/KG (273-304); Potassium 3.9 MMOL/L (3.5-5.1); Total Protein 4.7 G/DL (6.4-8.3)
[2018-03-20] MEDS: POTASSIUM CHLORIDE RIDER 20 MEQ in PREMIX 1 EACH IV PRN ×3 (09:11→21:51)
[2018-03-20] MEDS: MIDAZOLAM 2 MG/2 ML VIAL IV PRN ×5 (09:13→17:05)
[2018-03-20] MEDS: PANTOPRAZOLE 40 MG VIAL IV SCH (09:16)
[2018-03-20] MEDS: POTASSIUM CHLORIDE RIDER 10 MEQ in PREMIX 1 EACH IV PRN (09:45)
[2018-03-20] MEDS ORDERED: LABETALOL 100 MG/20 ML VIAL IV ONE ×4 (10:19→11:20)
[2018-03-20] MEDS ORDERED: LABETALOL 20 MG/4 ML SYRINGE IV ONE (10:25)
[2018-03-20] MEDS ORDERED: LABETALOL INJ 200 MG in SODIUM CHLORIDE 0.9% 160 ML IV SCH (11:00)
[2018-03-20] MEDS: MORPHINE 10 MG/1 ML VIAL IV PRN ×3 (11:39→18:40)
[2018-03-20] MEDS: MILRINONE 20 MG/100 ML PREMIX IV SCH (12:07)
[2018-03-20] MEDS ORDERED: niCARdipine 25 MG/10 ML VIAL IV ONE (12:37)
[2018-03-20] MEDS: niCARdipine INJ 25 MG in SODIUM CHLORIDE 0.9% 240 ML IV PRN ×3 (12:45→22:19)
[2018-03-20] MEDS ORDERED: FUROSEMIDE 40 MG/4 ML VIAL IV ONE (16:13)
[2018-03-20] MEDS: FUROSEMIDE 40 MG TABLET PO SCH (16:15)
[2018-03-20] MEDS: ASPIRIN EC 325 MG TABLET PO SCH (16:32)
[2018-03-20] MEDS ORDERED: ATORVASTATIN 40 MG TABLET PO SCH (16:51)
[2018-03-20 18:20] LABS: Hematocrit 29.2 VOL% (35.7-47.0); Hemoglobin 10.1 GM/DL (12.0-16.0)
[2018-03-20 20:45] LABS: ABG Base Excess 0.1 MMOL/L (-2.5-2.5); ABG HCO3 24.5 MMOL/L (20-26); ABG Oxygen Saturation 95.5 % (95-100); ABG PCO2 33.8 MM HG (35-48); ABG PH 7.452 (7.35-7.45); ABG PO2 72.7 MM HG (80-95); ABG TCO2 21.3 MMOL/L (23-27); Glucose Heart Surgery 156 MG/DL (74-106); Hematocrit Heart Surgery 32.2 PERCENT (37-47); Hemoglobin Heart Surgery 10.4 G/DL (12.0-16.0)
[2018-03-20] MEDS: ATORVASTATIN 40 MG TABLET PO SCH (21:09)
[2018-03-20] MEDS: INSULIN REGULAR 100 UNIT/ML SUBCUT SCH (22:22)
[2018-03-21] MEDS: MORPHINE 4 MG/1 ML VIAL IV PRN ×2 (00:45→20:17)
[2018-03-21] MEDS: CEFUROXIME INJ 1,500 MG in SYRINGE 1 EACH IV SCH ×2 (00:49→14:14)
[2018-03-21] MEDS: MILRINONE 20 MG/100 ML PREMIX IV SCH ×2 (01:11→12:50)
[2018-03-21] MEDS: INSULIN REGULAR 100 UNIT/ML SUBCUT SCH ×5 (01:36→20:15)
[2018-03-21] MEDS: niCARdipine INJ 25 MG in SODIUM CHLORIDE 0.9% 240 ML IV PRN ×2 (02:47→07:11)
[2018-03-21] MEDS: MORPHINE 10 MG/1 ML VIAL IV PRN ×3 (03:34→14:14)
[2018-03-21 04:36] LABS: ABG Base Excess -0.5 MMOL/L (-2.5-2.5); ABG HCO3 22.2 MMOL/L (20-26); ABG Oxygen Saturation 92.4 % (95-100); ABG PCO2 30.2 MM HG (35-48); ABG PH 7.484 (7.35-7.45); ABG PO2 71.7 MM HG (80-95); ABG TCO2 23.1 MMOL/L (23-27); Glucose Heart Surgery 153 MG/DL (74-106); Hemoglobin Heart Surgery 11.1 G/DL (12.0-16.0); Potassium Heart/CVR 3.6 MMOL/L (3.5-5.1)
[2018-03-21 04:42] LABS: Basophils % 0.1 % (0.0-0.8); Hematocrit 29.8 VOL% (35.7-47.0); Hemoglobin 10.8 GM/DL (12.0-16.0); Immature Granulocytes % 0.3 %; Immature Granulocytes Absolute 0.05 #; Lymphocytes # 1.2 10*3/uL (1.4-4.0); Lymphocytes % 8.1 % (21.3-54.2); Mean Corpuscular HGB Conc 36.2 GM/DL (32-36); Mean Corpuscular Hemoglobin 30 PG (27-34); Mean Corpuscular Volume 82.3 FL (87-102); Monocytes # 1.6 10*3/uL (0.11-0.8); Monocytes % 10.3 % (1.7-12.7); Neutrophils # 12.4 10*3/uL (1.4-7.4); Neutrophils % 81.2 % (38.7-73.9); Platelet Count 299 T/CUMM (130-400); Red Blood Count 3.62 MC/CUMM (3.8-5.5); Red Cell Distribution Width 16.6 % (9.3-17.3); White Blood Count 15.2 T/CUMM (4-12)
[2018-03-21 05:04] LABS: Band Neutrophils 1 % (0-10); Hypochromasia 1+; Lymphocytes 8 % (20-55); Platelet Estimate Adequate; Segmented Neutrophils 85 % (50-85); Total Cells Counted 100
[2018-03-21 05:05] LABS: Osmolality,Calculated 278.5 MOS/KG (273-304); Potassium 3.7 MMOL/L (3.5-5.1)
[2018-03-21] MEDS: SODIUM CHLORIDE 0.45% 1,000 ML IV SCH ×2 (06:08→07:49)
[2018-03-21] MEDS ORDERED: FUROSEMIDE 40 MG/4 ML VIAL IV ONE (06:54)
[2018-03-21] MEDS ORDERED: LIDOCAINE 2% 20 ML VIAL RESP TX ONE (07:46)
[2018-03-21] MEDS ORDERED: LIDOCAINE 1% 20 ML VIAL MISC INJ ONE (07:46)
[2018-03-21] MEDS ORDERED: INSULIN REGULAR 100 UNIT/ML SUBCUT SCH (08:00)
[2018-03-21] MEDS: PROPOFOL 1,000 MG/100 ML BOTTLE IV SCH ×2 (08:00→21:32)
[2018-03-21] MEDS: MIDAZOLAM 2 MG/2 ML VIAL IV PRN ×2 (08:38→20:46)
[2018-03-21] MEDS: LOSARTAN 25 MG TABLET PO SCH ×2 (09:14→20:17)
[2018-03-21] MEDS: ASPIRIN EC 325 MG TABLET PO SCH (09:14)
[2018-03-21] MEDS: amLODIPine 2.5 MG TABLET PO SCH (09:14)
[2018-03-21] MEDS: CARVEDILOL 6.25 MG TABLET PO SCH ×2 (09:14→20:17)
[2018-03-21] MEDS: FUROSEMIDE 40 MG TABLET PO SCH (09:14)
[2018-03-21] MEDS: CEFEPIME 1,000 MG in SYRINGE 1 EACH IV SCH ×2 (09:15→20:16)
[2018-03-21] MEDS: PANTOPRAZOLE 40 MG VIAL IV SCH (09:17)
[2018-03-21] MEDS: methylPREDNISolone SOD SUC 40 MG/1 ML VIAL IV SCH ×2 (09:18→16:12)
[2018-03-21] MEDS: CHLORHEXIDINE 0.12% ORAL RINSE 60 ML BOTTLE SWISH/SPIT SCH ×2 (09:44→21:32)
[2018-03-21] MEDS ORDERED: niCARdipine 25 MG/10 ML VIAL IV ONE (11:26)
[2018-03-21] MEDS: ALBUTEROL/IPRATROPIUM 3 ML NEB RESP TX SCH ×2 (13:51→19:59)
[2018-03-21] MEDS ORDERED: GLUCAGON 1 MG VIAL IM PRN (14:00)
[2018-03-21] MEDS: ATORVASTATIN 40 MG TABLET PO SCH (20:17)
[2018-03-21] MEDS: niCARdipine INJ 50 MG in SODIUM CHLORIDE 0.9% 230 ML IV PRN ×2 (20:59→23:30)
[2018-03-22] MEDS: ALBUTEROL/IPRATROPIUM 3 ML NEB RESP TX SCH ×4 (01:09→19:48)
[2018-03-22] MEDS: CEFUROXIME INJ 1,500 MG in SYRINGE 1 EACH IV SCH ×3 (01:21→23:48)
[2018-03-22] MEDS: methylPREDNISolone SOD SUC 40 MG/1 ML VIAL IV SCH ×4 (01:21→23:49)
[2018-03-22] MEDS: INSULIN REGULAR 100 UNIT/ML SUBCUT SCH ×7 (01:21→23:23)
[2018-03-22] MEDS: NITROGLYCERIN DRIP 50 MG/250 ML BOTTLE IV PRN (02:27)
[2018-03-22] MEDS: MORPHINE 4 MG/1 ML VIAL IV PRN (02:55)
[2018-03-22] MEDS: PROPOFOL 1,000 MG/100 ML BOTTLE IV SCH ×4 (03:45→23:09)
[2018-03-22] MEDS: MORPHINE 10 MG/1 ML VIAL IV PRN ×4 (03:48→18:21)
[2018-03-22] MEDS: MIDAZOLAM 2 MG/2 ML VIAL IV PRN (03:49)
[2018-03-22] MEDS ORDERED: HEPARIN/NACL 0.9% 2 UNITS/ML 500 ML IV ONE (04:32)
[2018-03-22 04:37] LABS: ABG Base Excess 1.1 MMOL/L (-2.5-2.5); ABG HCO3 25.4 MMOL/L (20-26); ABG Oxygen Saturation 94.7 % (95-100); ABG PCO2 34.8 MM HG (35-48); ABG PH 7.458 (7.35-7.45); ABG PO2 72.3 MM HG (80-95); ABG TCO2 22.4 MMOL/L (23-27)
[2018-03-22 04:43] LABS: Basophils % 0.1 % (0.0-0.8); Hematocrit 28.9 VOL% (35.7-47.0); Hemoglobin 9.8 GM/DL (12.0-16.0); Immature Granulocytes % 0.5 %; Immature Granulocytes Absolute 0.08 #; Lymphocytes # 1.3 10*3/uL (1.4-4.0); Lymphocytes % 8.1 % (21.3-54.2); Mean Corpuscular HGB Conc 33.9 GM/DL (32-36); Mean Corpuscular Hemoglobin 29 PG (27-34); Mean Platelet Volume 10.4 FL (9.6-12.0); Monocytes # 1.2 10*3/uL (0.11-0.8); Neutrophils # 12.9 10*3/uL (1.4-7.4); Neutrophils % 83.3 % (38.7-73.9); Platelet Count 277 T/CUMM (130-400); Red Blood Count 3.36 MC/CUMM (3.8-5.5); Red Cell Distribution Width 16.4 % (9.3-17.3); White Blood Count 15.5 T/CUMM (4-12)
[2018-03-22 05:09] LABS: Calcium 7.9 MG/DL (8.5-10.1); Osmolality,Calculated 285.3 MOS/KG (273-304); Potassium 3.6 MMOL/L (3.5-5.1)
[2018-03-22 05:44] LABS: Band Neutrophils 1 % (0-10); Lymphocytes 4 % (20-55); Platelet Estimate Normal; Segmented Neutrophils 90 % (50-85); Total Cells Counted 100
[2018-03-22 06:10] LABS: Prealbumin 10.7 MG/DL (20-40)
[2018-03-22] MEDS: CHLORHEXIDINE 0.12% ORAL RINSE 60 ML BOTTLE SWISH/SPIT SCH ×2 (09:30→20:20)
[2018-03-22] MEDS: amLODIPine 2.5 MG TABLET PO SCH (09:32)
[2018-03-22] MEDS: LOSARTAN 25 MG TABLET PO SCH ×2 (09:32→20:18)
[2018-03-22] MEDS: ASPIRIN EC 325 MG TABLET PO SCH (09:32)
[2018-03-22] MEDS: FUROSEMIDE 40 MG/4 ML VIAL IV SCH ×2 (09:32→16:36)
[2018-03-22] MEDS: CARVEDILOL 12.5 MG TABLET PO SCH ×2 (09:32→20:18)
[2018-03-22] MEDS: PANTOPRAZOLE 40 MG VIAL IV SCH (09:33)
[2018-03-22] MEDS: CEFEPIME 1,000 MG in SYRINGE 1 EACH IV SCH ×2 (09:33→20:18)
[2018-03-22] MEDS: SODIUM CHLORIDE 0.45% 1,000 ML IV SCH (16:38)
[2018-03-22] MEDS: ATORVASTATIN 40 MG TABLET PO SCH (20:21)
[2018-03-22] MEDS: niCARdipine INJ 50 MG in SODIUM CHLORIDE 0.9% 230 ML IV PRN (21:02)
[2018-03-23] MEDS: ALBUTEROL/IPRATROPIUM 3 ML NEB RESP TX SCH ×4 (00:23→19:17)
[2018-03-23] MEDS: MORPHINE 10 MG/1 ML VIAL IV PRN ×4 (01:46→11:00)
[2018-03-23] MEDS: INSULIN REGULAR 100 UNIT/ML SUBCUT SCH ×5 (03:38→20:13)
[2018-03-23 05:34] LABS: Basophils % 0.1 % (0.0-0.8); Hematocrit 30.1 VOL% (35.7-47.0); Hemoglobin 10.1 GM/DL (12.0-16.0); Immature Granulocytes % 0.5 %; Immature Granulocytes Absolute 0.09 #; Lymphocytes # 1.1 10*3/uL (1.4-4.0); Lymphocytes % 6.5 % (21.3-54.2); Mean Corpuscular HGB Conc 33.6 GM/DL (32-36); Mean Corpuscular Hemoglobin 29 PG (27-34); Mean Corpuscular Volume 87.5 FL (87-102); Mean Platelet Volume 10.7 FL (9.6-12.0); Monocytes # 1.1 10*3/uL (0.11-0.8); Monocytes % 6.3 % (1.7-12.7); Neutrophils # 15.2 10*3/uL (1.4-7.4); Neutrophils % 86.6 % (38.7-73.9); Platelet Count 296 T/CUMM (130-400); Red Blood Count 3.44 MC/CUMM (3.8-5.5); Red Cell Distribution Width 16.2 % (9.3-17.3); White Blood Count 17.5 T/CUMM (4-12)
[2018-03-23 06:00] LABS: Osmolality,Calculated 296.7 MOS/KG (273-304); Potassium 3.6 MMOL/L (3.5-5.1)
[2018-03-23 07:04] LABS: Hypochromasia 1+; Lymphocytes 5 % (20-55); Platelet Estimate Adequate; Segmented Neutrophils 87 % (50-85); Total Cells Counted 100
[2018-03-23] MEDS: PROPOFOL 1,000 MG/100 ML BOTTLE IV SCH ×2 (07:10→16:49)
[2018-03-23] MEDS: FUROSEMIDE 40 MG/4 ML VIAL IV SCH ×2 (08:00→17:51)
[2018-03-23] MEDS: methylPREDNISolone SOD SUC 40 MG/1 ML VIAL IV SCH ×2 (08:00→16:10)
[2018-03-23] MEDS: CEFEPIME 1,000 MG in SYRINGE 1 EACH IV SCH ×2 (09:03→20:12)
[2018-03-23] MEDS: PANTOPRAZOLE 40 MG VIAL IV SCH (09:04)
[2018-03-23] MEDS: amLODIPine 2.5 MG TABLET PO SCH (09:04)
[2018-03-23] MEDS: LOSARTAN 25 MG TABLET PO SCH (09:04)
[2018-03-23] MEDS: CHLORHEXIDINE 0.12% ORAL RINSE 60 ML BOTTLE SWISH/SPIT SCH ×2 (09:04→20:37)
[2018-03-23] MEDS: CARVEDILOL 12.5 MG TABLET PO SCH (09:04)
[2018-03-23] MEDS: ASPIRIN EC 325 MG TABLET PO SCH (09:04)
[2018-03-23] MEDS ORDERED: FUROSEMIDE 40 MG/4 ML VIAL IV ONE (09:05)
[2018-03-23] MEDS: CLORAZEPATE 7.5 MG TABLET PO PRN ×2 (09:16→14:36)
[2018-03-23] MEDS: niCARdipine INJ 50 MG in SODIUM CHLORIDE 0.9% 230 ML IV PRN (09:19)
[2018-03-23] MEDS ORDERED: KETOROLAC 15 MG/1 ML VIAL IV ONE (11:23)
[2018-03-23] MEDS: POTASSIUM CHLORIDE RIDER 20 MEQ in PREMIX 1 EACH IV PRN (12:13)
[2018-03-23] MEDS: CEFUROXIME INJ 1,500 MG in SYRINGE 1 EACH IV SCH (13:04)
[2018-03-23] MEDS: CARVEDILOL 25 MG TABLET PO SCH (20:12)
[2018-03-23] MEDS: ATORVASTATIN 40 MG TABLET PO SCH (20:12)
[2018-03-23] MEDS: LOSARTAN 50 MG TABLET PO SCH (20:33)
[2018-03-24] MEDS: CLORAZEPATE 7.5 MG TABLET PO PRN ×3 (00:01→13:45)
[2018-03-24] MEDS: CEFUROXIME INJ 1,500 MG in SYRINGE 1 EACH IV SCH ×2 (00:02→11:52)
[2018-03-24] MEDS: INSULIN REGULAR 100 UNIT/ML SUBCUT SCH ×4 (00:02→17:24)
[2018-03-24] MEDS: methylPREDNISolone SOD SUC 40 MG/1 ML VIAL IV SCH ×3 (00:02→17:23)
[2018-03-24] MEDS: PROPOFOL 1,000 MG/100 ML BOTTLE IV SCH (00:03)
[2018-03-24] MEDS: ALBUTEROL/IPRATROPIUM 3 ML NEB RESP TX SCH ×4 (01:54→19:12)
[2018-03-24 04:03] LABS: Basophils % 0.1 % (0.0-0.8); Hematocrit 31.9 VOL% (35.7-47.0); Hemoglobin 10.5 GM/DL (12.0-16.0); Immature Granulocytes % 0.8 %; Immature Granulocytes Absolute 0.15 #; Lymphocytes # 1.3 10*3/uL (1.4-4.0); Lymphocytes % 7.1 % (21.3-54.2); Mean Corpuscular HGB Conc 32.9 GM/DL (32-36); Mean Corpuscular Hemoglobin 29 PG (27-34); Mean Corpuscular Volume 87.9 FL (87-102); Mean Platelet Volume 10.3 FL (9.6-12.0); Monocytes # 1.2 10*3/uL (0.11-0.8); Monocytes % 6.8 % (1.7-12.7); Neutrophils # 15.4 10*3/uL (1.4-7.4); Neutrophils % 85.2 % (38.7-73.9); Platelet Count 329 T/CUMM (130-400); Red Blood Count 3.63 MC/CUMM (3.8-5.5); White Blood Count 18.1 T/CUMM (4-12)
[2018-03-24 04:05] LABS: ABG Base Excess 4.9 MMOL/L (-2.5-2.5); ABG HCO3 28.8 MMOL/L (20-26); ABG Oxygen Saturation 97.8 % (95-100); ABG PCO2 38.6 MM HG (35-48); ABG PH 7.478 (7.35-7.45); ABG PO2 97.9 MM HG (80-95)
[2018-03-24 04:39] LABS: Calcium 7.7 MG/DL (8.5-10.1); Potassium 3.3 MMOL/L (3.5-5.1)
[2018-03-24] MEDS: SODIUM CHLORIDE 0.45% 1,000 ML IV SCH (04:44)
[2018-03-24] MEDS: POTASSIUM CHLORIDE RIDER 20 MEQ in PREMIX 1 EACH IV PRN ×2 (05:12→06:14)
[2018-03-24] MEDS: MORPHINE 4 MG/1 ML VIAL IV PRN ×5 (06:25→21:16)
[2018-03-24 07:57] LABS: ABG Base Excess 6.5 MMOL/L (-2.5-2.5); ABG HCO3 30.3 MMOL/L (20-26); ABG Oxygen Saturation 96.7 % (95-100); ABG PCO2 38.3 MM HG (35-48); ABG PH 7.502 (7.35-7.45); ABG PO2 81.4 MM HG (80-95); ABG TCO2 26.8 MMOL/L (23-27)
[2018-03-24] MEDS: CARVEDILOL 25 MG TABLET PO SCH ×2 (08:00→17:25)
[2018-03-24] MEDS: FUROSEMIDE 40 MG/4 ML VIAL IV SCH ×2 (08:00→17:22)
[2018-03-24] MEDS: amLODIPine 2.5 MG TABLET PO SCH (08:00)
[2018-03-24] MEDS: LOSARTAN 50 MG TABLET PO SCH ×2 (08:00→21:13)
[2018-03-24] MEDS: CEFEPIME 1,000 MG in SYRINGE 1 EACH IV SCH ×2 (08:00→21:12)
[2018-03-24] MEDS: PANTOPRAZOLE 40 MG VIAL IV SCH (08:00)
[2018-03-24] MEDS: ASPIRIN EC 325 MG TABLET PO SCH (08:00)
[2018-03-24] MEDS: CHLORHEXIDINE 0.12% ORAL RINSE 60 ML BOTTLE SWISH/SPIT SCH ×2 (08:00→21:13)
[2018-03-24] MEDS ORDERED: acetaZOLAMIDE 250 MG TABLET PO ONE (10:22)
[2018-03-24] MEDS ORDERED: hydrALAZINE 20 MG/1 ML VIAL ONE (10:57)
[2018-03-24] MEDS ORDERED: hydrALAZINE 20 MG/1 ML VIAL IV ONE (11:01)
[2018-03-24] MEDS: hydrALAZINE 25 MG TABLET PO SCH ×2 (11:50→21:13)
[2018-03-24 12:19] LABS: Apearance,Urine CLEAR (Clear); Bacteria,Urine Occasional /HPF (Few); Bilirubin,Urine Negative (Negative); Blood, Urine Small mg/dL (Negative); Glucose,Urine (UA) Negative (Negative); Hyaline Casts,Urine 1 /LPF (0-3); Ketones,Urine Negative (Negative); Mucus,Urine Occasional /LPF (Occasional); Nitrite,Urine Negative (Negative); Protein,Urine Negative; RBC,Urine <1 /HPF (0-4); Squamous Epithelial Cell,Urine Occasional /HPF (0-10); Urine Color Yellow (Yellow); Urine Specific Gravity 1.008 (1.001-1.035); WBC,Urine 3 /HPF (0-6)
[2018-03-24] MEDS: ATORVASTATIN 40 MG TABLET PO SCH (21:13)
[2018-03-25] MEDS: ALBUTEROL/IPRATROPIUM 3 ML NEB RESP TX SCH ×4 (00:04→19:03)
[2018-03-25] MEDS: methylPREDNISolone SOD SUC 40 MG/1 ML VIAL IV SCH (00:49)
[2018-03-25] MEDS: CEFUROXIME INJ 1,500 MG in SYRINGE 1 EACH IV SCH ×2 (00:50→12:35)
[2018-03-25] MEDS: MORPHINE 4 MG/1 ML VIAL IV PRN ×4 (00:55→21:42)
[2018-03-25] MEDS: CLORAZEPATE 7.5 MG TABLET PO PRN ×2 (04:54→21:43)
[2018-03-25 05:14] LABS: Basophils % 0.1 % (0.0-0.8); Hematocrit 31.2 VOL% (35.7-47.0); Hemoglobin 10.2 GM/DL (12.0-16.0); Immature Granulocytes % 1.1 %; Immature Granulocytes Absolute 0.21 #; Lymphocytes # 1.7 10*3/uL (1.4-4.0); Lymphocytes % 8.9 % (21.3-54.2); Mean Corpuscular HGB Conc 32.7 GM/DL (32-36); Mean Corpuscular Hemoglobin 29 PG (27-34); Mean Corpuscular Volume 88.4 FL (87-102); Monocytes # 1.6 10*3/uL (0.11-0.8); Monocytes % 8.4 % (1.7-12.7); Neutrophils # 15.4 10*3/uL (1.4-7.4); Neutrophils % 81.5 % (38.7-73.9); Platelet Count 350 T/CUMM (130-400); Red Blood Count 3.53 MC/CUMM (3.8-5.5); Red Cell Distribution Width 15.7 % (9.3-17.3); White Blood Count 18.9 T/CUMM (4-12)
[2018-03-25 05:41] LABS: Calcium 7.9 MG/DL (8.5-10.1); Osmolality,Calculated 293.8 MOS/KG (273-304); Potassium 3.2 MMOL/L (3.5-5.1)
[2018-03-25] MEDS ORDERED: methylPREDNISolone SOD SUC 40 MG/1 ML VIAL IV SCH (07:30)
[2018-03-25] MEDS: FUROSEMIDE 40 MG/4 ML VIAL IV SCH ×2 (08:05→16:26)
[2018-03-25] MEDS: CEFEPIME 1,000 MG in SYRINGE 1 EACH IV SCH ×2 (08:07→21:40)
[2018-03-25] MEDS: CARVEDILOL 25 MG TABLET PO SCH ×2 (08:26→17:25)
[2018-03-25] MEDS: LOSARTAN 50 MG TABLET PO SCH ×2 (08:27→21:42)
[2018-03-25] MEDS: hydrALAZINE 25 MG TABLET PO SCH ×2 (08:27→21:42)
[2018-03-25] MEDS: ASPIRIN EC 325 MG TABLET PO SCH (08:27)
[2018-03-25] MEDS: amLODIPine 2.5 MG TABLET PO SCH (08:27)
[2018-03-25] MEDS: CHLORHEXIDINE 0.12% ORAL RINSE 60 ML BOTTLE SWISH/SPIT SCH ×2 (08:29→21:42)
[2018-03-25] MEDS: PANTOPRAZOLE 40 MG VIAL IV SCH (08:30)
[2018-03-25] MEDS ORDERED: hydrALAZINE 20 MG/1 ML VIAL IV ONE (11:55)
[2018-03-25] MEDS: ATORVASTATIN 40 MG TABLET PO SCH (21:42)
[2018-03-26] MEDS: ALBUTEROL/IPRATROPIUM 3 ML NEB RESP TX SCH ×4 (00:28→18:56)
[2018-03-26] MEDS: MORPHINE 4 MG/1 ML VIAL IV PRN ×3 (01:15→10:11)
[2018-03-26 05:30] LABS: Basophils % 0.1 % (0.0-0.8); Eosinophils # 0.1 10*3/uL (0.0-0.87); Eosinophils % 0.4 % (0.00-10.9); Hematocrit 31.7 VOL% (35.7-47.0); Hemoglobin 10.3 GM/DL (12.0-16.0); Immature Granulocytes % 1.4 %; Immature Granulocytes Absolute 0.26 #; Lymphocytes # 4.6 10*3/uL (1.4-4.0); Mean Corpuscular HGB Conc 32.5 GM/DL (32-36); Mean Corpuscular Hemoglobin 29 PG (27-34); Mean Corpuscular Volume 88.1 FL (87-102); Mean Platelet Volume 9.8 FL (9.6-12.0); Monocytes # 1.5 10*3/uL (0.11-0.8); Monocytes % 8.1 % (1.7-12.7); Neutrophils # 12.6 10*3/uL (1.4-7.4); Platelet Count 374 T/CUMM (130-400); Red Cell Distribution Width 15.3 % (9.3-17.3); White Blood Count 19.1 T/CUMM (4-12)
[2018-03-26 06:03] LABS: Calcium 7.9 MG/DL (8.5-10.1); Osmolality,Calculated 286.1 MOS/KG (273-304)
[2018-03-26] MEDS: POTASSIUM CHLORIDE RIDER 20 MEQ in PREMIX 1 EACH IV PRN ×3 (06:45→16:30)
[2018-03-26] MEDS: CARVEDILOL 25 MG TABLET PO SCH ×2 (08:18→16:59)
[2018-03-26] MEDS: ASPIRIN EC 325 MG TABLET PO SCH (09:54)
[2018-03-26] MEDS: amLODIPine 10 MG TABLET PO SCH (09:54)
[2018-03-26] MEDS: LOSARTAN 50 MG TABLET PO SCH ×2 (09:54→21:39)
[2018-03-26] MEDS: hydrALAZINE 25 MG TABLET PO SCH ×2 (09:55→21:38)
[2018-03-26] MEDS: CHLORHEXIDINE 0.12% ORAL RINSE 60 ML BOTTLE SWISH/SPIT SCH ×2 (09:56→21:38)
[2018-03-26] MEDS: FUROSEMIDE 40 MG/4 ML VIAL IV SCH (09:58)
[2018-03-26] MEDS: PANTOPRAZOLE 40 MG VIAL IV SCH (10:01)
[2018-03-26] MEDS: POTASSIUM CHLORIDE RIDER 10 MEQ in PREMIX 1 EACH IV PRN ×2 (18:51→23:18)
[2018-03-26] MEDS: CLORAZEPATE 7.5 MG TABLET PO PRN (21:39)
[2018-03-26] MEDS: ATORVASTATIN 40 MG TABLET PO SCH (21:39)
[2018-03-27] MEDS: POTASSIUM CHLORIDE RIDER 10 MEQ in PREMIX 1 EACH IV PRN ×3 (00:25→09:27)
[2018-03-27] MEDS: ALBUTEROL/IPRATROPIUM 3 ML NEB RESP TX SCH ×4 (00:49→19:57)
[2018-03-27 05:28] LABS: Basophils % 0.2 % (0.0-0.8); Eosinophils # 0.2 10*3/uL (0.0-0.87); Eosinophils % 1.6 % (0.00-10.9); Hematocrit 25.3 VOL% (35.7-47.0); Hemoglobin 8.1 GM/DL (12.0-16.0); Immature Granulocytes % 1.1 %; Immature Granulocytes Absolute 0.14 #; Lymphocytes # 3.8 10*3/uL (1.4-4.0); Lymphocytes % 28.7 % (21.3-54.2); Mean Corpuscular Hemoglobin 29 PG (27-34); Mean Corpuscular Volume 90.4 FL (87-102); Mean Platelet Volume 10.3 FL (9.6-12.0); Monocytes # 1.1 10*3/uL (0.11-0.8); Monocytes % 7.9 % (1.7-12.7); Neutrophils % 60.5 % (38.7-73.9); Platelet Count 255 T/CUMM (130-400); Red Cell Distribution Width 15.3 % (9.3-17.3); White Blood Count 13.2 T/CUMM (4-12)
[2018-03-27 05:45] LABS: Osmolality,Calculated 296.1 MOS/KG (273-304); Potassium 2.9 MMOL/L (3.5-5.1)
[2018-03-27 05:48] LABS: Calcium 5.4 MG/DL (8.5-10.1)
[2018-03-27] MEDS ORDERED: BISACODYL 5 MG TABLET PO PRN (08:55)
[2018-03-27] MEDS ORDERED: SODIUM PHOSPHATE ENEMA 133 ML BOTTLE RECTAL PRN (08:56)
[2018-03-27] MEDS: PANTOPRAZOLE 40 MG VIAL IV SCH (09:29)
[2018-03-27] MEDS: FUROSEMIDE 40 MG/4 ML VIAL IV SCH (09:30)
[2018-03-27] MEDS: amLODIPine 10 MG TABLET PO SCH (09:32)
[2018-03-27] MEDS: LOSARTAN 50 MG TABLET PO SCH ×2 (09:32→21:08)
[2018-03-27] MEDS: CARVEDILOL 25 MG TABLET PO SCH ×2 (09:33→17:03)
[2018-03-27] MEDS: hydrALAZINE 25 MG TABLET PO SCH ×2 (09:33→21:08)
[2018-03-27] MEDS: ASPIRIN EC 325 MG TABLET PO SCH (09:33)
[2018-03-27] MEDS: CHLORHEXIDINE 0.12% ORAL RINSE 60 ML BOTTLE SWISH/SPIT SCH ×2 (09:34→21:13)
[2018-03-27] MEDS: predniSONE 20 MG TABLET PO SCH (09:34)
[2018-03-27] MEDS: NICOTINE 14 MG/24 HR PATCH TRANSDERM SCH (09:37)
[2018-03-27] MEDS: CEFDINIR 300 MG CAPSULE PO SCH ×2 (09:49→21:08)
[2018-03-27] MEDS: POTASSIUM CHLORIDE RIDER 20 MEQ in PREMIX 1 EACH IV PRN (14:30)
[2018-03-27] MEDS: ATORVASTATIN 40 MG TABLET PO SCH (21:08)
[2018-03-28] MEDS: ALBUTEROL/IPRATROPIUM 3 ML NEB RESP TX SCH ×2 (01:27→07:48)
[2018-03-28 06:02] LABS: Basophils % 0.1 % (0.0-0.8); Eosinophils # 0.1 10*3/uL (0.0-0.87); Eosinophils % 0.3 % (0.00-10.9); Hematocrit 33.7 VOL% (35.7-47.0); Hemoglobin 11.3 GM/DL (12.0-16.0); Immature Granulocytes % 0.9 %; Immature Granulocytes Absolute 0.18 #; Lymphocytes # 3.2 10*3/uL (1.4-4.0); Lymphocytes % 15.9 % (21.3-54.2); Mean Corpuscular HGB Conc 33.5 GM/DL (32-36); Mean Corpuscular Hemoglobin 29 PG (27-34); Mean Corpuscular Volume 86.9 FL (87-102); Mean Platelet Volume 10.4 FL (9.6-12.0); Monocytes # 1.5 10*3/uL (0.11-0.8); Monocytes % 7.5 % (1.7-12.7); Neutrophils # 15.1 10*3/uL (1.4-7.4); Neutrophils % 75.3 % (38.7-73.9); Platelet Count 372 T/CUMM (130-400); Red Blood Count 3.88 MC/CUMM (3.8-5.5); Red Cell Distribution Width 15.6 % (9.3-17.3)
[2018-03-28 06:15] LABS: Calcium 8.1 MG/DL (8.5-10.1); Osmolality,Calculated 288.8 MOS/KG (273-304); Potassium 3.7 MMOL/L (3.5-5.1)
[2018-03-28 06:29] LABS: Hypochromasia Slight; Lymphocytes 6 % (20-55); Ovalocytes Slight; Platelet Estimate Adequate; Segmented Neutrophils 89 % (50-85); Total Cells Counted 100
[2018-03-28] MEDS ORDERED: POTASSIUM CHLORIDE 20 MEQ TABLET PO PRN (06:56)
[2018-03-28] MEDS: CHLORHEXIDINE 0.12% ORAL RINSE 60 ML BOTTLE SWISH/SPIT SCH (08:53)
[2018-03-28] MEDS: NICOTINE 14 MG/24 HR PATCH TRANSDERM SCH (08:53)
[2018-03-28] MEDS: predniSONE 20 MG TABLET PO SCH (08:54)
[2018-03-28] MEDS: CARVEDILOL 25 MG TABLET PO SCH (08:54)
[2018-03-28] MEDS: amLODIPine 10 MG TABLET PO SCH (08:54)
[2018-03-28] MEDS: hydrALAZINE 25 MG TABLET PO SCH (08:54)
[2018-03-28] MEDS: PANTOPRAZOLE 40 MG VIAL IV SCH (08:55)
[2018-03-28] MEDS: ASPIRIN EC 325 MG TABLET PO SCH (08:55)
[2018-03-28] MEDS: LOSARTAN 50 MG TABLET PO SCH (08:55)
[2018-03-28] MEDS: CEFDINIR 300 MG CAPSULE PO SCH (08:55)
[2018-03-28] MEDS: FUROSEMIDE 40 MG/4 ML VIAL IV SCH (08:56)
[2018-03-28 12:17] VITALS: BP 136/66
[2018-03-29] MEDS ORDERED: FUROSEMIDE 40 MG TABLET PO SCH (09:00)
[2018-03-29] MEDS ORDERED: PANTOPRAZOLE 40 MG TABLET PO SCH (09:00)
== END 2018-03-28 14:36 | disposition swing bed (61) | DRG 234 ==
LOC: EDBD → EDUNIT# → N.ED 16:59 → N.EDINP 17:44 → N.CC 18:47 → N.TELEN 03-17 15:54 → N.ICU 03-19 11:22 → N.CVR 03-19 12:22 → N.ICU 03-21 11:07 → N.TELES 03-26 20:08
PROVIDERS: ADMIT Internal Medicine Clinical Cardiac Electrophysiology; ATTEND Internal Medicine Clinical Cardiac Electrophysiology
PROC: CLCCHCL (ICD-10-PCS; 2018-03-15 10:15)